=== PATIENT | female | born 1935 | race Caucasian/White ===

== ENCOUNTER 2017-02-04 10:49 | Observation (INO) ==
--- NOTE | 2017-02-04 13:14 | EKG Report ---
Test Performed on : 02/04/2017 1:01:23 PM Test Reason : SOB Blood Pressure : / mmHG Vent. Rate : 072 BPM Atrial Rate : 084 BPM P-R Int : 000 ms QRS Dur : 086 ms QT Int : 468 ms P-R-T Axes : 000 -23 046 degrees QTc Int : 512 ms Atrial flutter. with variable AV block. Nonspecific ST and T wave abnormality Prolonged QT Abnormal ECG When compared with ECG of 14-MAY-2016 12:02, Atrial flutter. has replaced Sinus rhythm. Nonspecific T wave abnormality, worse in Anterolateral leads QT has lengthened Confirmed by Jhonny CASTELLANOS, Luan Montana ([id number]) on 02/05/2017 6:27:37 PM
--- NOTE | 2017-02-04 14:30 | Diag Imaging Result Document ---
PROCEDURE NAME: CHEST-2 VIEWS - 02/04/2017 FRONTAL AND LATERAL CHEST, TWO VIEWS: COMPARISON: 01/22/2017. FINDINGS: The lungs are hyperexpanded. Mild increased AP diameter to the chest. The heart is not enlarged. The pulmonary vessels are not distended. No pneumonia. No pleural effusions. There are small calcified right hilar lymph nodes with several scattered calcified granulomata. IMPRESSION: Emphysema.
[2017-02-04 15:00] LABS: MANUAL DIFF NEEDED? NO
[2017-02-04 15:03] LABS: ALLEN TEST YES; BE -1.8 mmoll (-3.0-3.0); BLOOD TYPE ARTERIAL; DRAW SITE R RADIAL; METHB 1.8 % (0.0-1.5); O2(CT) 15.1 mL/dL (15.0-23.0); PCO2(98.6) 27 mmHg (35-45); PO2(98.6) 97 mmHg (60-100); SAMPLE BLOOD; SAO2 99.4 % (95.0-100.0); THB 11.1 g/dL (11.5-17.4); pH(98.6) 7.49 (7.35-7.45)
[2017-02-04 15:04] LABS: MODALITY ROOM AIR
[2017-02-04 15:05] LABS: BASO% 0.6 % (0.0-0.8); EOS# 0.09 X1000 (0.0-0.7); EOS% 1.9 % (0.0-10.0); HEMATOCRIT 34.7 % (37.0-47.0); HEMOGLOBIN 11.1 g/dL (12.0-16.0); LYMPH# 1.74 X1000 (1.2-3.4); LYMPH% 36.6 % (20.5-51.1); MCH 26.4 PG (27-31); MCV 82.4 FL (81-99); MONO# 0.29 X1000 (0.11-0.59); MONO% 6.1 % (1.7-9.3); MPV 9.3 FL (7.4-10.4); NEUT% 54.8 % (42.2-75.2); PLT 324 X1000 (130-400); RBC 4.21 XMIL (4.2-5.4)
--- NOTE | 2017-02-04 15:52 | CONSULTATION ---
DATE OF CONSULTATION: 02/04/2017 INDICATION: Atrial fibrillation. HISTORY OF PRESENT ILLNESS: Ms. Barajas is an 81-year-old white female who normally follows with Dr. Murphy. She apparently had a reoccurrence of her atrial fibrillation on Thursday, [place]. She noticed some mild fluttering and increased shortness of breath with minimal exertion. She reports compliance with Eliquis at home. Reportedly, this is the medication she has been taking even though Xarelto is the indicated medication on her list of medications from Dr. Murphy. In addition, she has been compliant with her Multaq. She has no chest pain, no orthopnea. PAST MEDICAL HISTORY: 1. Significant for paroxysmal atrial fibrillation. She has had 2 separate DC cardioversions occurring in August 2012, with the last in April of 2016. She has been on Multaq during both of these episodes. 2. Hypertension. 3. Hyperlipidemia. 4. Reflux disease. SOCIAL HISTORY: She denies any current tobacco. No alcohol use. FAMILY HISTORY: Significant for hypertension. REVIEW OF SYSTEMS: A 10-system review of systems is negative except for those as mentioned in the HPI. PHYSICAL EXAMINATION: Vital Signs: She is afebrile. Heart rate is 83. Her blood pressure is 141/82. General: She is in no acute distress. HEENT: Oropharynx is moist. Normal dentition. Eye examination shows pink conjunctivae, white sclerae. Neck: Examination shows no obvious thyromegaly or thyroid tenderness. Cardiovascular: She is in an irregularly rate and rhythm. She has no obvious murmurs present. She has no S3. She has no lower extremity edema. Chest: Clear to auscultation bilaterally. She has no increased work of breathing. Abdomen: Soft, nontender, nondistended. She has no obvious organomegaly. Skin: Warm and dry throughout, without any rashes. Neurological: She is moving all extremities well. Cranial nerves 2-12 are intact, without any sensation deficits. Psychiatric: Alert, oriented, pleasant. She has normal mood and affect. PERTINENT DATA: EKG shows atrial fibrillation, rate of 72 beats per minute. Laboratory data right now is incomplete and currently pending, but her white count is 4.7, hematocrit is 34.7, and platelet count 324,000. Her ABG has a pH of 7.49, pCO2 of 27, PO2 of 97. ASSESSMENT: Reoccurrence of atrial fibrillation in a patient with paroxysmal atrial fibrillation. PLAN: Pending her creatinine, we will continue her on Eliquis. If her creatinine is below 1.6, we may consider changing her to 5 mg. Otherwise, we will leave her on 2.5 mg b.i.d. If 2.5 is the correct dose, then we will likely just proceed with cardioversion. Otherwise, we will likely have to proceed with a LIZZY cardioversion, as she has been on subtherapeutic doses. We will stop the dronedarone, as she has had breakthrough episodes on the Multaq. We will likely initiate flecainide in the future. She has a preserved ejection fraction by echocardiogram in April 2016 that demonstrated an EF of 65% to 70%. At this point, we will tentatively plan for LIZZY cardioversion tomorrow. Risks, benefits, and alternatives have been explained to the patient and she agrees to proceed. cc: MD Raad Eaton MD
[2017-02-04 15:53] LABS: BILIRUBIN URINE NEGATIVE (NEGATIVE); BLOOD URINE SMALL (NEGATIVE); COLOR YELLOW; GLUCOSE URINE NEGATIVE (NEGATIVE); LEUKOCYTES URINE TRACE (NEGATIVE); NITRITE URINE NEGATIVE (NEGATIVE); PROTEIN URINE NEGATIVE (NEGATIVE); TURBIDITY URINE CLEAR (CLEAR); UR EPITHELIAL CELLS <10 /HPF (<10); URINE BACTERIA NEGATIVE /HPF; URINE CULTURE NEEDED? YES; URINE MICRO REVIEW NEEDED? NO; URINE RBC <10 /HPF (<10); URINE SOURCE CLEAN CATCH; URINE WBC <10 /HPF (<10); UROBILINOGEN URINE NORMAL (NORMAL)
[2017-02-04 15:57] LABS: ALBUMIN 3.5 g/dL (3.5-5.0); CALCIUM 9.4 mg/dL (8.8-10.2); MAGNESIUM 2.2 mg/dL (1.5-2.7); POTASSIUM 4.4 mmol/L (3.5-5.1); TOTAL BILIRUBIN 0.46 mg/dL (0.20-1.00); TOTAL PROTEIN 6.6 g/dL (6.3-8.3)
[2017-02-04] MEDS ORDERED: TESSALON PO PRN (18:37)
[2017-02-04] MEDS ORDERED: LASIX IV ONE (18:38)
[2017-02-04] MEDS ORDERED: ELIQUIS PO SCH (21:00)
[2017-02-04] MEDS: VITAMIN D PO SCH (22:14)
--- NOTE | 2017-02-05 07:05 | HISTORY AND PHYSICAL ---
CHIEF COMPLAINT: Shortness of breath. HISTORY OF PRESENT ILLNESS: Ms. Barajas is an 81-year-old, white, female patient, not doing well the last few days. The patient was feeling weak, tired, and no energy. The patient did have some symptoms of upper respiratory tract infection and bronchitis. The last 2 days, the patient was getting short of breath with minimal exertion. She was not able to walk across the room. She was getting short of breath. She did have palpitations. She was feeling like her heart is not in rhythm. The patient does have paroxysmal atrial fibrillation. She came for evaluation. I evaluated the patient. The patient was in atrial fibrillation. Her rate was average. Patient was symptomatic. I decided to admit the patient for observation and further care. The patient did have cough and chest congestion. She denied any orthopnea or PND. No typical chest pain. At times, palpitations. She denied any leg swelling. Gets short of breath with minimal exertion. Mild nausea. Oral intake was poor. No major weight loss or weight gain. No heat or cold intolerance. The patient does have problem with reflux, hiatal hernia. At times, constipation. No diarrhea, blood, or mucus in the stool. No dysuria or hematuria. No joint swelling or redness. Vague low back pain. Denied any skin rash. The patient does have mild problem with recent memory. No further history available at this time. ALLERGIES: Levaquin, penicillin, sulfa. HOME MEDICATIONS: Include Multaq, Eliquis, vitamin D, Tessalon Perles, Lexapro. PAST MEDICAL HISTORY: Significant for paroxysmal atrial fibrillation, hypercalcemia, vitamin D deficiency, situational depression, gastritis and reflux disease, hiatal hernia, constipation, osteoarthritis. PERSONAL HISTORY: . Lives by herself. [place]. Denied alcohol or substance abuse. Fairly independent in activities of daily living. FAMILY HISTORY: Significant for hypertension. PHYSICAL EXAMINATION: GENERAL: Elderly, white, female patient, in mild distress. VITAL SIGNS: Blood pressure 141/82, pulse 83, respirations 20, temperature 97.8 degrees. SKIN: Senile turgor. No rash or petechiae. HEENT: Head atraumatic and normocephalic. Tutwiler conjunctivae. Anicteric sclerae. Extraocular muscle movement normal. Fundus cannot be penetrated. Good oral hygiene. No tonsillopharyngeal congestion or exudate. Ears and nose benign. NECK: Supple. No JVD, thyromegaly, or lymphadenopathy. CHEST: Bilateral good air entry present. Few basal crepitations. No rales. CARDIOVASCULAR: S1 and S2. Irregularly irregular. No gallop or thrill. A 1-2/6 systolic murmur at the apex. ABDOMEN: Soft, globular. Bowel sounds present. Patient does have periumbilical hernia, reducible. Nontender. No guarding or rigidity. EXTREMITIES: No cyanosis, clubbing. No acute DVT. Crepitation of both the knee joints. 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 Able to move all 4 limbs. LABORATORY DATA: Hemoglobin 11.1, hematocrit 34.7, platelet count 324,000, WBC count was 4.75. Blood gas, pH 7.49, pCO2 27, PO2 was 97, O2 saturation 99.4. This was done on room air. Electrolytes did reveal mild hyponatremia. Sodium was 134, potassium 4.4, BUN 16, creatinine was 1. Cardiac isoenzymes negative. ProBNP 3217. Folate 8.2. Urinalysis was benign. Chest x-ray did reveal COPD. No acute pulmonary edema. CONSIDERATION: Patient admitted with shortness of breath. Contributing factor could be due to her atrial fibrillation and mild congestive failure. Her other problems include: 1. Hypertension. 2. Gastritis and reflux disease. 3. Mild dementia. 4. The patient does have anemia. Her hemoglobin was low. 5. Situational depression. 6. Chest x-ray revealed chronic obstructive pulmonary disease. 7. ProBNP was 3217. PLAN: Overall plan discussed at length with the patient and she is in agreement. We will get cardiology consult. Her EKG reviewed. I am going to give her a small dose of Lasix. Continue home medicine. cc: Raad Jackson MD
[2017-02-05 08:29] LABS: MANUAL DIFF NEEDED? NO
[2017-02-05 08:43] LABS: BASO% 0.7 % (0.0-0.8); EOS# 0.08 X1000 (0.0-0.7); EOS% 1.8 % (0.0-10.0); HEMATOCRIT 35.3 % (37.0-47.0); HEMOGLOBIN 11.4 g/dL (12.0-16.0); LYMPH# 1.54 X1000 (1.2-3.4); LYMPH% 34.5 % (20.5-51.1); MCH 26.3 PG (27-31); MCHC 32.3 g/dL (33-37); MCV 81.5 FL (81-99); MPV 9.2 FL (7.4-10.4); PLT 329 X1000 (130-400); RBC 4.33 XMIL (4.2-5.4)
[2017-02-05 09:00] LABS: ALBUMIN 3.6 g/dL (3.5-5.0); CALCIUM 9.6 mg/dL (8.8-10.2); POTASSIUM 4.5 mmol/L (3.5-5.1); TOTAL BILIRUBIN 0.74 mg/dL (0.20-1.00)
[2017-02-05] MEDS ORDERED: LEXAPRO PO SCH (09:00)
[2017-02-05] MEDS ORDERED: ELIQUIS PO SCH (10:15)
[2017-02-05] MEDS: VITAMIN D PO SCH (11:06)
[2017-02-05] MEDS ORDERED: XYLOCAINE 4% TOPICAL SOLUTION ONE (12:01)
[2017-02-05] MEDS ORDERED: SODIUM CHLORIDE 0.9% 20 ML ONE (12:01)
[2017-02-05] MEDS ORDERED: HURRICAINE SPRAY (DOSE) ONE (12:01)
[2017-02-05] MEDS ORDERED: XYLOCAINE 2% VISCOUS ONE (12:01)
[2017-02-05] MEDS ORDERED: DIPRIVAN 1% ONE (12:31)
[2017-02-05] MEDS ORDERED: NS 1,000 ML ONE (12:44)
[2017-02-05] MEDS ORDERED: CLAVE ANES SET 100 IN 11965 ONE (12:44)
--- NOTE | 2017-02-05 13:41 | CARDIAC CATH REPORT ---
PROCEDURE NAME: - INDICATION: Atrial fibrillation. PROCEDURE IN DETAIL: Ms. Barajas was brought to the catheterization laboratory in a fasting state. Informed consent was obtained. Prepped in usual fashion. After LIZZY was performed, she was ensured to be adequately sedated. She was placed in a synchronized fashion. Defibrillator was charged to 150 joules and 1 shock was delivered, converting her to sinus rhythm with no apparent complications. The patient tolerated the procedure well without any issues. cc: MD Raad Eaton MD
[2017-02-05] MEDS ORDERED: XYLOCAINE-MPF 2% ONE (13:47)
[2017-02-05] MEDS ORDERED: LR 500 ML ONE (13:47)
[2017-02-05] MEDS ORDERED: TAMBOCOR PO SCH (15:00)
[2017-02-05] MEDS ORDERED: TOPROL XL PO SCH (15:00)
[2017-02-05 15:12] VITALS: BP 133/57
--- NOTE | 2017-02-05 15:58 | Transesophageal Echocardiogram ---
DATE: 02/05/2017 DATE OF PROCEDURE: 02/05/2017. PROCEDURE: Transesophageal echocardiogram. INDICATION FOR THE STUDY: Atrial fib. Evaluate pre cardioversion. PROCEDURE IN DETAIL: Ms. Barajas was brought to the catheterization laboratory in a fasting state. Informed consent was obtained. Prepped in usual fashion. She had viscous lidocaine and Hurricaine spray for oropharyngeal anesthesia. After appropriate sedation with propofol, the LIZZY probe was passed without difficulty. Images were obtained in multiple planes. At the conclusion of procedure, the probe was removed. The patient tolerated the procedure well without any complications. FINDINGS: 1. Right atrium appears normal. There is no evidence of clot seen in the right atrium. No shunt across the interatrial septum was visualized with color Doppler or via injection of agitated saline contrast. 2. Trace tricuspid regurgitation on limited views of the tricuspid valve. 3. Normal RV size and systolic function. 4. Mild pulmonic insufficiency on somewhat limited views of the pulmonic valve. 5. There is mild left atrial enlargement. No evidence of clot was seen in the left atrium or the left atrial appendage. Good color Doppler flow was seen throughout the left atrial appendage. Pulse wave velocity was greater than 50 cm/sec down the left atrium and the left atrial appendage. 6. There is no mitral prolapse. There is mild to moderate mitral regurgitation with a multi jet mitral regurgitation. 7. Normal LV size and systolic function. Estimated EF appears to be greater than 55%. 8. Aortic valve appeared to open well. There was mild insufficiency with no evidence of stenosis. The valve is trileaflet. 9. There is mild atherosclerosis seen in the descending thoracic aorta with normal size. 10. No pericardial effusion identified. The patient appeared to be in atrial fibrillation during the study. cc: MD Raad Eaton MD
[2017-02-05] MEDS ORDERED: BLISTEX MEDICATED BERRY LIP BALM TOP PRN (16:17)
--- NOTE | 2017-02-05 16:22 | EKG Report ---
Test Performed on : 02/05/2017 2:43:44 PM Test Reason : post cardioversion orders Blood Pressure : / mmHG Vent. Rate : 060 BPM Atrial Rate : 060 BPM P-R Int : 162 ms QRS Dur : 080 ms QT Int : 454 ms P-R-T Axes : 045 -29 258 degrees QTc Int : 454 ms Sinus rhythm. with premature atrial complexes. ST \T\ T wave abnormality, consider anterolateral ischemia Abnormal ECG When compared with ECG of 04-FEB-2017 13:01, (Unconfirmed) Sinus rhythm. has replaced Atrial flutter. T wave inversion now evident in Lateral leads QT has shortened Confirmed by Jhonny CASTELLANOS, Luan Montana ([id number]) on 02/07/2017 2:09:36 PM
== END 2017-02-05 18:14 | disposition home or self-care (01) ==
LOC: DIRADM → 3N 11:51
PROVIDERS: ADMIT Internal Medicine; ATTEND Internal Medicine